=== PATIENT | male | born 1960 | race African-American/Black ===

== ENCOUNTER 2018-05-06 08:54 | Emergency (ER) | payer MEDICARE ==
[2018-05-06] MEDS ORDERED: predniSONE 20 MG TAB ONE (09:19)
[2018-05-06] MEDS ORDERED: Azithromycin 250 MG TAB ONE ×2 (09:34→09:35)
--- NOTE | 2018-05-06 10:05 | RAD ---
TWO VIEW CHEST: HISTORY: Cough. COMPARISON: None. FINDINGS: Heart size is mildly prominent. There is mild vascular and interstitial prominence. No confluent in filtrate. No evidence of effusion. IMPRESSION: No evidence of focal infiltrate. Mild vascular engorgement apparent. POS: [facility]
== END 2018-05-06 09:10 | disposition home or self-care (01) ==
LOC: MADERS 08:54
DX: J20.9 Acute bronchitis, unspecified (principal); I10 Essential (primary) hypertension; J45.909 Unspecified asthma, uncomplicated; F17.210 Nicotine dependence, cigarettes, uncomplicated
CPT/HCPCS: 71046; 93005; J7506; J7620

== ENCOUNTER 2018-08-13 12:18 | Emergency (ER) | payer MEDICARE ==
--- NOTE | 2018-08-13 15:12 | RAD ---
CHEST 2 VIEWS: HISTORY: Cough. COMPARISON: 05/06/2018. FINDINGS: Cardiac silhouette is upper limits of normal. Pulmonary vasculature engorged with widespread reticul onodular interstitial prominence. Mediastinum is midline. No confluent airspace consolidation, pneu mothorax, or pleural fluid. IMPRESSION: Cardiomegaly with mild pulmonary vascular congestion. POS: [facility]
== END 2018-08-13 13:55 | disposition home or self-care (01) ==
LOC: MADERS 12:18
DX: R09.89 Other specified symptoms and signs involving the circulatory and respiratory systems (principal); E66.9 Obesity, unspecified; I10 Essential (primary) hypertension; I50.9 Heart failure, unspecified; J44.9 Chronic obstructive pulmonary disease, unspecified; F17.210 Nicotine dependence, cigarettes, uncomplicated; Z79.51 Long term (current) use of inhaled steroids
CPT/HCPCS: 71046; 87804